=== PATIENT | female | born 1955 | race Caucasian/White ===

== ENCOUNTER 2018-07-28 12:42 | Observation (INO) ==
[2018-07-28] MEDS ORDERED: Ipratropium/Albuterol Neb 3 ML IH ONE (12:55)
--- NOTE | 2018-07-28 12:57 | Emergency Department Note ---
Disposition Clinical Impression: Acute exacerbation of chronic obstructive airways disease Disposition: Admitted As Inpatient Condition: Good Referrals: Kevin Parmar [Primary Care Provider] - SOB HPI - General Chief Complaint: ED Shortness of Breath/Dyspnea Stated Complaint: SHORTNESS OF BREATH Time Seen by Provider: 07/28/18 12:50 Source: patient Mode of arrival: ambulatory Limitations: no limitations Nursing Notes Reviewed: Yes Vital Signs Reviewed: Yes - History of Present Illness Patient complains of increasing shortness of breath since yesterday. She denies any fever. She denies any chest pain. She is bringing up some phlegm occasionally. She has had the same symptoms numerous times in the past. Pt Subjective Complaint: shortness of breath Onset (ago): day(s) (2) Severity: moderate Consistency/Duration: constant Improves with: nothing Worsens with: nothing Known history of: COPD Associated symptoms: Reports: cough, wheezing, sputum production Treatment prior to arrival: bronchodilator Cough present: Yes Cough Description: Involuntary Sputum production: Yes Sputum Amount: Scant - Related Data Allergies Allergy/AdvReac Type Severity Reaction Status Date / Time No Known Allergies Allergy Verified 07/28/18 13:00 All systems ED: reviewed and negative except as stated. Review of Systems: As Per HPI Constitutional: Denies: fever, chills, weakness, weight change Eyes: Denies: eye pain, eye discharge, vision change ENT ED: Denies: ear pain, throat pain, dental pain, hearing loss, epistaxis, congestion, dysphagia Cardiovascular: Denies: chest pain, palpitations, dyspnea on exertion, edema, syncope Respiratory: Reports: as per HPI, cough, wheezes Gastrointestinal: Denies: abdominal pain, nausea, vomiting, diarrhea, constipation, hematemesis, melena, hematochezia Genitourinary: Denies: dysuria, frequency, hematuria, discharge Musculoskeletal: Denies: back pain, neck pain, arthralgia, myalgia Integumentary: Denies: rash, abrasion, lesions Neurological: Denies: headache, weakness, numbness, paresthesias, confusion, abnormal gait, vertigo Psychiatric: Denies: anxiety, depression, suicidal thoughts, homicidal thoughts , auditory hallucinations, visual hallucinations Endocrine: Denies: fatigue Hematological/Lymphatic: Denies: easy bleeding, easy bruising Allergic/Immunologic: Reports: as per HPI Past Medical History - Past Medical History Attestation: Yes The following information was validated with the patient. Source: patient, nursing notes reviewed Medical history: Reports: COPD - Social History Smoking Status: Current every day smoker Smokeless Tobacco Status: No Alcohol use: Reports: none Drug use: Reports: none Physical Exam - General Limitations: no limitations General appearance: alert, in no apparent distress - Head Head exam: atraumatic, normocephalic, normal inspection - Eye Eye exam: Present: normal appearance, PERRL, EOMI - ENT ENT exam: normal exam, normal oropharynx, mucous membranes moist - Neck Neck exam: Present: normal inspection, full ROM, trachea midline - Chest Chest inspection: Present: normal inspection, symmetric chest wall rise - Respiratory Respiratory exam: Present: wheezes, prolonged expiratory phase. Absent: respiratory distress, accessory muscle use - Cardiovascular Cardiovascular exam: Present: regular rate, normal rhythm, normal heart sounds - Abdominal Exam Abdominal exam: Present: soft, Non-Tender. Absent: tenderness, distention, guarding, rebound, rigidity - Extremities Exam Extremities exam: Present: normal inspection, full ROM. Absent: tenderness, pedal edema - Back Exam Back exam: Present: normal inspection - Neurological Exam Neurological exam: Present: alert, oriented X3 - Psychiatric Psychiatric exam: Present: normal affect, normal mood - Skin Skin exam: Present: warm, dry, intact Course Vital Signs Temperature 98.4 F 07/28/18 12:47 Pulse Rate 101 07/28/18 12:47 Respiratory Rate 07/28/18 12:47 Blood Pressure 125/72 07/28/18 12:47 O2 Sat by Pulse Oximetry 89 07/28/18 12:47 Temperature 98.4 F 07/28/18 12:47 Pulse Rate 101 07/28/18 12:47 Respiratory Rate 07/28/18 12:47 Blood Pressure 125/72 07/28/18 12:47 O2 Sat by Pulse Oximetry 89 07/28/18 12:47 Oxygen Delivery Oxygen Delivery Nasal Cannula Shortness of Breath/Dyspnea - MDM Narrative Medical decision making narrative: I reviewed the patient's medication list Case was discussed with Dr. Chou and the patient will be admitted to his care - Medical Records Medical records reviewed: Yes I reviewed the patient's medical records. - Lab Data Lab results reviewed: Yes I reviewed the patient's lab results. - Radiology Data Radiology results reviewed: Yes I reviewed the patient's radiology results. - EKG Data EKG attestation: Yes I reviewed and interpreted this EKG. EKG results narrative: EKG shows a normal sinus rhythm with PACs is a 6 bpm. MA interval is 105 ms. QRS duration 74 ms. QT interval 338 ms QTc interval 382ms. R axis CLARICE degrees. There is no ST elevation
[2018-07-28] MEDS ORDERED: 0.9 % Sodium Chloride 1,000 ML IVC SCH ×2 (13:00→14:24)
[2018-07-28 13:22] LABS: Basophils # 0.1 K/mcL (0.0-0.2); Basophils % 0.7 %; Eosinophils # 0.1 K/mcL (0.0-0.6); Eosinophils % 0.7 %; Hemoglobin 14.3 g/dL (11.5-15.4); Immature Granulocytes % 0.4 % (0-4); Lymphocytes # 0.5 K/mcL (0.6-4.6); Lymphocytes % 6.3 %; Mean Corpuscular HGB Conc 32.5 g/dL (31.6-35.5); Mean Corpuscular Hemoglobin 29.3 pg (28.0-33.3); Mean Corpuscular Volume 90.2 fL (83.0-100.0); Mean Platelet Volume 8.7 fL (9.4-12.4); Monocytes # 0.6 K/mcL (0.0-1.3); Monocytes % 8.3 %; Platelet Count 268 K/mcL (140-400); Red Blood Count 4.88 M/mcL (3.82-4.97); Red Cell Distribution Width 12.2 % (11.5-14.5); Segmented Neutrophils % 83.6 %
[2018-07-28 13:39] LABS: Alanine Aminotransferase 9 Units/L (7-52); Albumin 3.9 g/dL (3.5-5.7); Albumin/Globulin Ratio 1.4 (1.1-2.2); Alkaline Phosphatase 69 Units/L (34-104); Aspartate Amino Transferase 13 Units/L (13-39); BUN/Creatinine Ratio 14 (6-26); Bilirubin,Total 0.5 mg/dL (0.3-1.0); Blood Urea Nitrogen 8 mg/dL (8-23); Carbon Dioxide 34 mEq/L (23-29); Chloride 94 mEq/L (98-107); Globulin 2.8 g/dL (2.4-3.5); Glucose 103 mg/dL (70-105); Osmolality,Calculated 275 (280-300); Sodium 133 mEq/L (136-145); Total Protein 6.7 g/dL (6.4-8.9); eGFR For Non-African Americans > 60 (> 60)
[2018-07-28 13:40] LABS: Troponin I < 0.03 ng/mL (< 0.04)
[2018-07-28] MEDS ORDERED: Azithromycin 500 MG in D5% in Water 250 ML IVPB ONE ×2 (14:17→14:24)
[2018-07-28] MEDS ORDERED: Ipratropium/Albuterol Neb 3 ML IH SCH (14:24)
[2018-07-28] MEDS ORDERED: Naloxone 0.4 MG/ML INJ IVP PRN (14:24)
[2018-07-28] MEDS: Ipratropium/Albuterol Neb 3 ML IH SCH ×2 (15:18→21:21)
[2018-07-29] MEDS: Ipratropium/Albuterol Neb 3 ML IH SCH ×3 (00:45→08:45)
[2018-07-29 04:14] LABS: Basophils # 0.1 K/mcL (0.0-0.2); Basophils % 1.4 %; Eosinophils # 0.2 K/mcL (0.0-0.6); Eosinophils % 4.2 %; Hematocrit 37.4 % (35.3-44.9); Immature Granulocytes % 0.5 % (0-4); Lymphocytes # 0.8 K/mcL (0.6-4.6); Lymphocytes % 19.2 %; Mean Corpuscular HGB Conc 32.1 g/dL (31.6-35.5); Mean Corpuscular Hemoglobin 28.7 pg (28.0-33.3); Mean Corpuscular Volume 89.5 fL (83.0-100.0); Mean Platelet Volume 8.8 fL (9.4-12.4); Monocytes # 0.6 K/mcL (0.0-1.3); Monocytes % 14.8 %; Neutrophils # 2.6 K/mcL (1.6-8.9); Platelet Count 235 K/mcL (140-400); Red Blood Count 4.18 M/mcL (3.82-4.97); Red Cell Distribution Width 12.1 % (11.5-14.5); Segmented Neutrophils % 59.9 %
[2018-07-29 11:02] VITALS: BP 108/68
--- NOTE | 2018-07-29 11:28 | Internal Med History&Physical ---
Date of Encounter: 07/29/18 Time of Encounter: 10:55 Assessment and Plan (1) Acute exacerbation of chronic obstructive airways disease Current visit: Yes Status: Acute Chest x-ray showed left base infiltrate possibly representing pneumonia or atelectasis. Initial WBC showed no leukocytosis but left shift on differential. She received IV Zithromax in emergency room. She will continue on antibiotics at discharge. Internal Medicine - H&P: HPI Chief complaint: Dyspnea Admitted From: Emergency Dept Plans for Post Hospital Care: Home History of present illness: Ms. Lopez is a 62 year old female who came to emergency room stating she developed worsening dyspnea the afternoon of July 27. She took a previously planned trip to [place] and spent the night but on return to her home in [place] became increasingly dyspneic and stopped at the emergency room. She was evaluated and was felt to have exacerbation of COPD with possible left lower lobe pneumonia. She was admitted to [facility] floor for ongoing care needs. She reports multiple previous episodes of dyspnea. Respiratory history is significant for smoking since age 12 up to 2 packs per day. She has a diagnosis of COPD with PFTs done several years ago. She wears oxygen at bedtime and when necessary during the daytime. She follows with a angle shearer in [place] on a regular basis and is scheduled for a chest CT next week. She denies JANELLE or other lung disease. She states her breathing has improved now and she feels stable for discharge home. Past Med Surg Social Fam HX - Past Medical History Medical history: COPD Additional medical history: Patt recorder Psychiatric history: no psych history - Social History Smoking Status: Current every day smoker Packs per day: 0.5 Smokeless Tobacco Status: No Alcohol use: none Drug use: none Internal Medicine - H&P: Meds 3 Allergy/AdvReac Type Severity Reaction Status Date / Time No Known Allergies Allergy Verified 07/28/18 13:00 All Systems PM: A 10-system review of systems was performed and is negative for pertinent findings except as documented above in the HPI. Review of systems: Gen.: She states her weight has been stable the past few months Cardiovascular: She denies hypertension NC heart failure angina DVT or pulmonary embolus. She reports heart catheter last week at [facility] was unremarkable. She had a loop recorder placed approximately 6 months ago for "tachycardia" and is being monitored by strategic partnership manager on a regular basis. Respiratory: As per history of present illness GI: She denies disorders of her liver gallbladder or exocrine pancreas : She denies hematuria dysuria kidney stones Neurologic: She denies large distribution strokes or seizures. Endocrine: She denies diabetes thyroid disease or hyperlipidemia Hematology/oncology: She denies blood disorders cancers or anemia Psychiatric: She denies anxiety depression or other mental health issues [place] skeletal: She has DJD. She had right TKR approximately 2010 and left hip fracture with repair approximate 2014. She denies gout or other bone joint or muscle disorders. - Constitutional Vitals: Temp Pulse Resp BP Pulse Ox 98.8 F 76 16 108/68 99 07/29/18 11:01 07/29/18 11:01 07/29/18 11:01 07/29/18 11:01 07/29/18 11:01 Exam: Gen.: She is a well-developed well-nourished female resting comfortably in bed who appears in no acute distress at present time HEENT: Head is atraumatic and normocephalic. Eyes: EOMI. There is no scleral icterus. Mouth: Mucosa is moist. Neck: Supple and nontender. There is no thyromegaly or adenopathy noted. Heart: Regular without murmurs gallops or ectopics Lungs: She has markedly diminished breath sounds bilaterally. No wheezes or crackles are heard. Abdomen: Soft and nontender. No masses or guarding are noted. Extremities: There is no cyanosis edema or clubbing noted. Dorsalis pedis and posttibial pulses are trace to 1+ palpable bilaterally. Neurologic: Mental status: She is talkative and a good historian. Cranial nerves: Smile is symmetric. Forehead wrinkles bilaterally. Tongue protrudes midline. EOMI. Motor: There is no pronator drift. Cerebellar: Finger to nose is intact bilaterally. Skin: Warm and dry Internal Med - H&P Results - Labs CBC & Chem 7: 07/29/18 03:53 07/28/18 13:08 Labs: Short CBC 07/29/18 Range/Units 03:53 WBC 4.3 (4.3-11.1) K/mcL Hgb 12.0 D (11.5-15.4) g/dL Hct 37.4 (35.3-44.9) % Plt Count 235 (140-400) K/mcL Neutrophils # 2.6 (1.6-8.9) K/mcL
--- NOTE | 2018-07-29 11:38 | Discharge Summary ---
Date of Encounter: 07/29/18 Time of Encounter: 10:55 - Discharge Diagnosis (1) Acute exacerbation of chronic obstructive airways disease Priority: Primary Status: Acute Hospital course: Ms. Lopez is a 62 year old female who came to emergency room stating she developed worsening dyspnea the afternoon of July 27. She took a previously planned trip to [place] and spent the night but on return to her home in [place] became increasingly dyspneic and stopped at the emergency room. She was evaluated and was felt to have exacerbation of COPD with possible left lower lobe pneumonia. She was admitted to [facility] for ongoing care needs. Initial orders were written by the emergency room physician. I saw her on July 29 and performed the history physical and discharge. She was given IV Zithromax in emergency room. When I saw her she felt improved and wished to be discharged home. I offered to keep her another day in the hospital but she declined. She will continue with oral antibiotics for 4 additional days at discharge with probiotic. I strongly encouraged her to become a nonsmoker. I told her she should wear oxygen 24/7 until she is evaluated by her PCP or disability hearing officer within 1 week. - Time Spent with Patient Total time spent providing and/or coordinating discharge services: - Discharge Medications Prescriptions: Cefuroxime PO [Ceftin] 500 mg PO Q12HR #8 tablet Azithromycin [Zithromax] 250 mg PO DAILY #4 tablet Lactobacillus [Culturelle] 1 each PO BID #8 cap.[email or web address] Home Medications: Azithromycin [Zithromax] 250 mg PO DAILY #4 tablet 07/29/18 [Rx] Cefuroxime PO [Ceftin] 500 mg PO Q12HR #8 tablet 07/29/18 [Rx] Lactobacillus [Culturelle] 1 each PO BID #8 cap.[email or web address] 07/29/18 [Rx] Allergies/Adverse Reactions: 3 Allergy/AdvReac Type Severity Reaction Status Date / Time No Known Allergies Allergy Verified 07/28/18 13:00 Date of admission: 07/28/18 14:02 Primary care physician: Kevin Parmar - Constitutional Vitals: Temp Pulse Resp BP Pulse Ox 98.8 F 76 16 108/68 99 07/29/18 11:01 07/29/18 11:01 07/29/18 11:01 07/29/18 11:01 07/29/18 11:01 - Patient Status Disposition: Home, Self-Care Condition: Good - Discharge Instructions Follow Up With: Kevin Parmar [Primary Care Provider] - 1 week - Diet and Activity Activity: resume usual activities as tolerated, wear oxygen at all times Diet: advance to your usual diet
--- NOTE | 2018-08-01 09:12 | Electrocardiograph Report ---
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
== END 2018-07-29 12:35 | disposition home or self-care (01) ==
LOC: INPPIK 12:42 → EMEROOPIK 12:42 → INPPIK 14:42
PROVIDERS: ADMIT Internal Medicine; ATTEND Internal Medicine